=== PATIENT | female | born 1985 | race Two or more races ===

== ENCOUNTER 2024-02-25 15:55 | Inpatient (IN) | payer BC ==
[2024-02-25] MEDS ORDERED: Ondansetron 4 MG/2 ML SDV IVPUSH PRN (16:27)
[2024-02-25] MEDS ORDERED: Carboprost Tromethamine 250 MCG/1 mL Vial IM PRN (16:27)
[2024-02-25] MEDS ORDERED: Misoprostol 200 MCG Tab PO PRN (16:27)
[2024-02-25] MEDS ORDERED: Water For Irrigation,Sterile 1,000 ML Container IRR PRN (16:27)
[2024-02-25] MEDS ORDERED: Sodium Chloride 0.9% 2.5 ML Syringe FLUSH PRN (16:27)
[2024-02-25] MEDS ORDERED: Sodium Chloride 0.9% 20 ML SDV IV PRN (16:27)
[2024-02-25] MEDS ORDERED: Sodium Chloride 0.9% 10 ML Syringe FLUSH PRN (16:27)
[2024-02-25] MEDS ORDERED: Tranexamic Acid IN NACL,ISO-OS 1,000 MG in Premix Bag 1 BAG IV PRN (16:27)
[2024-02-25] MEDS ORDERED: Methylergonovine 0.2 MG/1 ML Amp IM PRN (16:27)
[2024-02-25] MEDS ORDERED: Lidocaine 1% 50 ML MDV INJECT PRN (16:27)
[2024-02-25] MEDS ORDERED: Lactated Ringers 1,000 ML IV SCH (16:30)
[2024-02-25] MEDS ORDERED: Oxytocin/0.9 % Sodium Chloride 30 UNIT/500 ML BAG IV SCH (16:30)
[2024-02-25 16:48] LABS: HEMATOCRIT 37.7 % (37.0-47.0); HEMOGLOBIN 12.8 g/dL (12.0-16.0); MEAN CORPUSCULAR HEMOGLOBIN 29.2 pg (28.0-32.0); MEAN CORPUSCULAR VOLUME 86.1 fL (83.0-99.0); MEAN PLATELET VOLUME 9.8 fL (9.4-12.3); PLATELET COUNT,PLT 323 K/uL (150-400); RED BLOOD CELL COUNT 4.38 M/uL (4.10-5.30)
[2024-02-25] MEDS: Butorphanol 2 MG/ML SDV IVPUSH PRN (16:56)
[2024-02-25] MEDS ORDERED: ePHEDrine 50 MG/ML SDV IVPUSH PRN ×2 (18:38)
[2024-02-25] MEDS ORDERED: Phenylephrine HCl In 0.9% NaCl 1 MG/10 ML Syringe IVPUSH PRN (18:38)
[2024-02-25] MEDS ORDERED: dexmedeTOMIDine HCl 200 MCG/2 ML SDV EPIDUR SCH (18:45)
[2024-02-25] MEDS ORDERED: Ropivacaine HCl/PF 400 MG in Premix Bag 1 BAG EPIDUR SCH (18:45)
[2024-02-25] MEDS ORDERED: Lidocaine 1% 20 ML MDV ONE (19:21)
[2024-02-25] MEDS ORDERED: Lanolin 100% Cream 7 GM Tube TOP PRN (21:49)
[2024-02-25] MEDS ORDERED: Docusate Sodium 100 MG Cap PO PRN (21:49)
[2024-02-25] MEDS ORDERED: Acetaminophen 500 MG Tab PO PRN (21:49)
[2024-02-26] MEDS: Benzocaine/Menthol 20%-0.5% Spray 78 GM Cannister TOP PRN (00:55)
[2024-02-26] MEDS: Witch Hazel Medicated Pads 40/Jar TOP PRN (00:56)
[2024-02-26] MEDS: Ibuprofen 800 MG Tab PO PRN (05:00)
[2024-02-26 06:11] LABS: HEMOGLOBIN 12.4 g/dL (12.0-16.0)
== END 2024-02-26 20:47 | disposition home or self-care (01) | DRG 560 ==
LOC: MW.OBCHECK 15:55 → MW.OB 15:56 → MW.OBCHECK 16:26 → MW.OB 16:27 → OBSVTOIN 19:15 → MW.OB 23:01
PROVIDERS: ADMIT Obstetrics & Gynecology Obstetrics; ATTEND Obstetrics & Gynecology
PROC: 10E0XZZ Delivery of Products of Conception, External Approach (ICD-10-PCS; principal; 2024-02-25)
PROC: 0KQM0ZZ Repair Perineum Muscle, Open Approach (ICD-10-PCS; 2024-02-25)
DX: O70.1 Second degree perineal laceration during delivery (principal); Z37.0 Single live birth; Z3A.38 38 weeks gestation of pregnancy
CPT/HCPCS: 36415; 59025; 59409; 84112; 85014; 85018; 85027; 86592; 86850; 86900; 86901; A9270-GY; J0595; J3490